=== PATIENT | male | born 1945 | race Caucasian/White ===

== ENCOUNTER → 2023-10-20 10:57 | Outpatient (REF) | payer BC, MEDICARE, SELFPAY ==
[2023-10-20 13:25] LABS: Microalbumin, Random Urine 5.2 mg/dl (0.6-1.7)
[2023-10-21 16:35] LABS: Microalbumin/creatinine Ratio 29.2 mg/g
== END ==
LOC: CLAB 10:57
PROVIDERS: ATTENDING PHYSICIAN Family Medicine
DX: E11.65 Type 2 diabetes mellitus with hyperglycemia (principal)
CPT/HCPCS: 82043; 82570